=== PATIENT | male | born 1990 | race Caucasian/White ===

== ENCOUNTER 2022-03-21 17:58 | Emergency (ER) | payer OTHER, SELFPAY ==
[2022-03-21 18:07] VITALS: BP 131/70; BP 148/76; PULSE 110; PULSE 98; RESP 18; TEMP 36.8; O2SAT 94; O2SAT 96; BMI 23.6
--- NOTE | 2022-03-21 18:52 | ED_ITS ---
HPI - General Adult General Chief complaint: General Medical Stated complaint: Eval Time Seen by Provider: 03/21/22 18:52 Source: patient and EMS Mode of arrival: EMS Limitations: no limitations History of Present Illness HPI narrative: Patient is a 31 year old assigned male at with a history of opioid abuse presenting to the emergency department today for a medical evaluation. Patient states that he has a history of opiate abuse and he is going to do an outpatient treatment program starting Thursday. Patient states that 2 days ago he had an overdose but hasn't in the last 2 days. Patient states that today, his mother freaked out and called EMS to have him evaluated. Patient adamantly denies any drug use today. Patient denies any dizziness, lightheadedness, abdominal pain, nausea, vomiting, fever, chills, blurry vision, double vision, loss of vision, chest pain, difficulty breathing, shortness of breath, back pain, night sweats, pain with urination, increased urinary frequency, increased urinary urgency, blood in his urine or stool, syncope or a near syncopal episode, recent trauma or falls, bowel incontinence, bladder incontinence, bowel retention, bladder retention, or any other complaints at this time. Relieving factors: none Exacerbating factors: none Associated symptoms: denies other symptoms Treatments prior to arrival: none Related Data Allergies Allergy/AdvReac Type Severity Reaction Status Date / Time No Known Allergies Allergy Unverified 02/23/20 16:09 [No Known Allergies*] Review of Systems Constitutional: Constitutional: Reports no additional constitutional complaints, Denies chills, Denies fever(s) and Denies night sweats Eyes: Eyes: Reports no additional eye complaints, Denies blurry vision, Denies change in vision, Denies diplopia, Denies eye discharge, Denies loss of vision and Denies eye pain ENT: Denies dizziness Cardiovascular: Cardiovascular: Reports no additional cardiovascular complaints, Denies chest pain, Denies lightheadedness, Denies Loss of Consciousness and Denies dyspnea Respiratory: Respiratory: Reports no additional respiratory complaints and Denies dyspnea Gastrointestinal: Gastrointestinal: Reports no additional gastrointestinal complaints, Denies abdominal pain, Denies melena, Denies hematochezia, Denies change in bowel habits and Denies change in stool character Genitourinary: Genitourinary: Reports no additional male genitourinary complaints, Denies hematuria, Denies oliguria, Denies difficulty urinating, Denies dysuria, Denies urinary frequency, Denies urinary hesitancy, Denies urinary incontinence and Denies urinary urgency Musculoskeletal: Musculoskeletal: Reports no additional musculoskeletal complaints, Denies numbness and Denies tingling Neurologic: Denies dizziness, Denies loss of vision, Denies numbness and Denies tingling Psychiatric: Psychiatric: Reports no additional psychiatric complaints Endocrine: Endocrine: Reports no additional endocrine complaints Hematologic/Lymphatic: Hematologic/Lymphatic: Reports no additional hematologic/lymphatic complaints Allergic/Immunologic: Allergic/Immunologic: Reports no additional allergic/im munologic complaints [facility] Past Medical History Attestation statement: The following information was validated with the patient. Source: old records reviewed Physical Exam ED Vital Signs: Vital Signs - 24 hr 03/21/22 18:07 Temperature 98.2 F Pulse Rate 110 H Respiratory Rate 18 Blood Pressure 131/70 Pulse Oximetry 94 Oxygen Delivery Method Room Air BMI result Body Mass Index 23.6 Const General: cooperative, no acute distress, alert and awake Nutritional Appearance: well nourished Orientation/consciousness: patient oriented x3 Limitations: no limitations HENMT Head: Yes normal to inspection and Yes atraumatic Ears: hearing grossly normal bilaterally and external ears normal General nose exam: Normal external nose present, no nasal discharge noted and no epistaxis Face and sinus: Yes normal facial exam, No abrasion and No laceration Mouth: Normal oral and palatal mucosa present, no drooling and no muffled voice Eyes General: appearance normal, both eyes and all related structures Periorbital: periorbital findings normal Eyelids: Yes eyelids normal Conjunctivae: conjunctivae normal Pupils: Equal, round and reactive pupils present and Pinpoint pupils bilaterally EOM: EOMs intact bilaterally Neck Neck: Yes normal visual inspection, Yes full ROM and Yes no lymphadenopathy Chest Chest palpation & inspection: normal inspection of the chest Resp Effort & Inspection: normal respiratory effort and able to speak in complete sentences Auscultation: clear to auscultation bilaterally Cardio Rate: regular rate Rhythm: regular rhythm GI Inspection: Yes normal to inspection Neuro General: patient oriented x3 and moves all extremities Cranial nerves: Yes Equal, round and reactive pupils present Cognition (Neuro): normal cognition Motor exam (neuro): 5/5 motor strength present throughout Sensory Exam: Normal double simultaneous stimulation for sensation Coordination: [id number] test normal Extrem General: Yes normal to inspection, Yes full ROM and Yes capillary refill normal Psych Appearance: grossly normal Mental Status: mental status grossly normal Affect: normal affect Attitude: cooperative Thought process: Normal thought process present Thought content: Normal thought content present Insight: Good insight present (Psych) Medical Decision Making MDM Narrative Medical decision making narrative: Patient is a 31 year old assigned male at with a history of opiate abuse presenting to the emergency department today for a medical evaluation. Patient's physical exam showed pinpoint pupils bilaterally but was otherwise unremarkable. Patient stated that he did not want any evaluation done. I suspect the patient to be under the influence of opiates at this time however, the patient is alert and oriented, requesting to go home. Patient called his mother who will be the safe and sober individual responsible for the patient. Patient to be sent home with narcan. I explained my physical exam findings to the patient. I answered all questions asked by the patient. I stressed the importance of the patient taking his medication as prescribed. I stressed the importance of the patient following up with his primary care provider. I stressed the importance of the patient returning to the emergency department immediately if his symptoms were to worsen or if he were to develop any dizziness, shortness of breath, difficulty breathing, chest pain, blurry vision, loss of vision, nausea, vomiting, abdominal pain, fever, chills, back pain, or any other complaints. Patient verbalized agreement and understanding with this treatment plan and discharge. Medical Records Medical records reviewed: Yes I reviewed the patient's medical records. Discharge Plan Discharge Clinical Impression: Hx of opioid abuse Patient Disposition: Home, Self-Care Instructions: Opioid Use Disorder (ED) Additional Instructions: Follow up with your primary care provider. Return to the emergency department immediately if your symptoms worsen or if you develop any dizziness, shortness of breath, difficulty breathing, chest pain, blurry vision, loss of vision, nausea, vomiting, abdominal pain, fever, chills, back pain, or any other complaints. Referrals: [facility] [place] Family Medicine [Provider Group] (Call to establish and follow up with a primary care provider. If you already have a primary care provider, please follow up with them. ) [facility] [place] Primary CareTony [Provider Group] (Call to establish and follow up with a primary care provider. If you already have a primary care provider, please follow up with them. ) [facility] [place] Primary CareJoel [Provider Group] (Call to establish and follow up with a primary care provider. If you already have a primary care provider, please follow up with them. ) Print Language: Lithuanian
[2022-03-21] MEDS: Naloxone HCl Nasal TAKE HOME 4 MG SPRAY NOSTRILALT (19:21)
--- NOTE | 2022-03-21 19:53 | MHC.RECOVSUP ---
Recovery Support note: Patient is a 31 year old Panamanian speaking male who presented to [facility] [place] [place] ED for evaluation after a recent overdose. Patient reports he relapsed and overdosed two days ago. Patient reports prior to this he relapsed in December and overdosed at that time however was sober for 3 years prior. Patient reports he has overdosed 11 times and he feels as though he almost last time. Patient was given Suboxone prescription from ED after this recent overdose however he hasn't taken them as he has not experienced withdrawal symptoms. Patient reports he is starting a virtual IOP with [facility] on Thursday and that he doesn't want to go inpatient as he has to work and pay bills. Patient reports he is temporarily staying with his parents for support and that he his girlfriend is supportive and that she doesn't use any substances. Discussed harm reduction with patient.
== END 2022-03-21 20:17 | disposition home or self-care (01) ==
PROVIDERS: Emergency Provider Emergency Medicine Emergency Medical Services
DX: F11.29 Opioid dependence with unspecified opioid-induced disorder (principal); Z71.51 Drug abuse counseling and surveillance of drug abuser
CPT/HCPCS: 99282; 99283; 99284